=== PATIENT | male | born 2000 | race African-American/Black ===

== ENCOUNTER 2025-07-06 06:12 | Emergency (ER) | payer MEDICAID ==
[~2025-07-06] VITALS: Ht 182.9 cm; Wt 83.0 kg
[2025-07-06 06:16] VITALS: O2SAT 96
[2025-07-06] MEDS: MORPHINE SULFATE 4 MG/ML INJ (FOR IV/IM USE) IV ONE (06:39)
[2025-07-06] MEDS: SODIUM CHLORIDE 0.9% 1,000 ML IV ONE (06:40)
[2025-07-06] MEDS: ONDANSETRON HCL 4MG/2ML INJ IV ONE (06:42)
[2025-07-06 07:18] LABS: BASOPHILS % 0.8 % (0.0-2.0); EOSINOPHILS % 2.3 % (0.0-5.0); HEMATOCRIT. 47.3 % (42.0-52.0); HEMOGLOBIN. 15.3 g/dL (14.0-18.0); LYMPHOCYTES % 30.2 % (20.0-50.0); MEAN PLATELET VOLUME 9.0 fl (7.4-10.4); MONOCYTES % 7.1 % (2.0-8.0); NEUTROPHILS % 59.6 % (40.0-76.0); PLATELET 297 x1000/uL (130-400); RED BLOOD CELL COUNT 5.37 mill/uL (4.7-6.1); RED CELL DISTRIBUTION WIDTH 13.5 % (11.6-14.6)
[2025-07-06 07:30] LABS: CREATININE 1.4 mg/dL (0.6-1.3)
[2025-07-06 07:31] LABS: UREA NITROGEN BLOOD 13 mg/dL (9-23)
[2025-07-06 07:32] LABS: ASPARTATE AMINOTRANSFERASE 46 IU/L (<34)
[2025-07-06 07:33] LABS: BILIRUBIN DIRECT 0.2 mg/dL (<=3.0); BILIRUBIN TOTAL 0.8 mg/dL (0.1-1.0); PROTEIN TOTAL 8.5 g/dL (6.0-8.3)
[2025-07-06] MEDS: HALOPERIDOL LACTATE 5MG/ML VIAL IM ONE (07:33)
[2025-07-06 07:34] VITALS: BP 126/75; PULSE 70; RESP 18; TEMP 36.7; O2SAT 100
[2025-07-06] MEDS ORDERED: ONDA-239 PO (13:45)
== END 2025-07-06 08:15 | disposition left against medical advice (07) ==
LOC: ER 06:12
DX: R10.32 Left lower quadrant pain (principal); R11.2 Nausea with vomiting, unspecified; Z79.899 Other long term (current) drug therapy
CPT/HCPCS: 99285; 74176; 96374; 96361; 96375; 80076; 80048; 83690; 83735; 85025; 36415; 96372; J1630; J2405; J2270; J7030

== ENCOUNTER 2025-07-06 11:25 | Emergency (ER) | payer OTHER, MEDICAID ==
[~2025-07-06] VITALS: Ht 188 cm; Wt 88.0 kg
[2025-07-06 11:44] VITALS: O2SAT 100
[2025-07-06 11:49] LABS: BASOPHILS % 0.2 % (0.0-2.0); EOSINOPHILS % 0.0 % (0.0-5.0); HEMATOCRIT. 44.5 % (42.0-52.0); HEMOGLOBIN. 14.8 g/dL (14.0-18.0); LYMPHOCYTES % 8.9 % (20.0-50.0); MEAN PLATELET VOLUME 7.6 fl (7.4-10.4); MONOCYTES % 2.6 % (2.0-8.0); NEUTROPHILS % 88.3 % (40.0-76.0); PLATELET 247 x1000/uL (130-400); RED BLOOD CELL COUNT 5.04 mill/uL (4.7-6.1); RED CELL DISTRIBUTION WIDTH 13.2 % (11.6-14.6)
[2025-07-06 12:02] LABS: CREATININE 1.3 mg/dL (0.6-1.3); UREA NITROGEN BLOOD 13 mg/dL (9-23)
[2025-07-06] MEDS ORDERED: DIPHENHYDRAMINE 50MG CAPSULE PO ONE (12:45)
[2025-07-06] MEDS: DIPHENHYDRAMINE 25MG CAPSULE PO NR (13:00)
[2025-07-06] MEDS: KETOROLAC 15MG/ML VIAL IM ONE (13:00)
[2025-07-06] MEDS: MAGNESIUM/ALUMINUM HYDROXIDE/SIMETHICONE 30ML UDC PO ONE (13:00)
[2025-07-06] MEDS: ACETAMINOPHEN 500MG TABLET PO ONE (13:00)
[2025-07-06] MEDS: ONDANSETRON 4MG ODT PO ONE (13:00)
[2025-07-06] MEDS ORDERED: ONDA-239 PO (13:45)
[2025-07-06 13:53] VITALS: BP 120/70; PULSE 75; RESP 18; TEMP 37.1; O2SAT 100
== END 2025-07-06 13:54 | disposition home or self-care (01) ==
LOC: ER 11:25
DX: R11.16 Cannabis hyperemesis syndrome (principal); R10.9 Unspecified abdominal pain; F12.10 Cannabis abuse, uncomplicated
CPT/HCPCS: 99284; 80048; 85025; 36415; 96372; J1885; Q0163; Q0162

== ENCOUNTER 2025-07-08 06:36 | Emergency (ER) | payer MEDICAID ==
[~2025-07-08] VITALS: Ht 177.8 cm; Wt 78.0 kg
[~2025-07-08 06:36] MED LIST: ONDA-239 PO
[2025-07-08 06:44] VITALS: O2SAT 98
[2025-07-08] MEDS: MAGNESIUM/ALUMINUM HYDROXIDE/SIMETHICONE 30ML UDC PO ONE (07:54)
[2025-07-08] MEDS: VISCOUS LIDOCAINE 2% 15 ML UDC MM ONE (07:54)
[2025-07-08] MEDS: DICYCLOMINE HCL 10MG CAPSULE PO ONE (07:54)
[2025-07-08] MEDS: PANTOPRAZOLE SODIUM 40 MG/VIAL IV ONE (07:55)
[2025-07-08] MEDS: ONDANSETRON HCL 4MG/2ML INJ IV ONE (07:55)
[2025-07-08 08:36] LABS: BASOPHILS % 0.1 % (0.0-2.0); EOSINOPHILS % 0.0 % (0.0-5.0); HEMATOCRIT. 47.5 % (42.0-52.0); HEMOGLOBIN. 15.4 g/dL (14.0-18.0); LYMPHOCYTES % 17.6 % (20.0-50.0); MEAN PLATELET VOLUME 7.7 fl (7.4-10.4); MONOCYTES % 5.3 % (2.0-8.0); NEUTROPHILS % 77.0 % (40.0-76.0); PLATELET 258 x1000/uL (130-400); RED BLOOD CELL COUNT 5.38 mill/uL (4.7-6.1); RED CELL DISTRIBUTION WIDTH 13.5 % (11.6-14.6)
[2025-07-08 08:51] LABS: CREATININE 1.5 mg/dL (0.6-1.3); TROPONIN I HIGH SENSITIVITY 28 ng/L (3.0-53)
[2025-07-08 08:52] LABS: UREA NITROGEN BLOOD 12 mg/dL (9-23)
[2025-07-08 08:53] LABS: ASPARTATE AMINOTRANSFERASE 55 IU/L (<34); BILIRUBIN DIRECT 0.2 mg/dL (<=3.0)
[2025-07-08 08:54] LABS: BILIRUBIN TOTAL 0.9 mg/dL (0.1-1.0); PROTEIN TOTAL 9.0 g/dL (6.0-8.3)
[2025-07-08] MEDS: SODIUM CHLORIDE 0.9% 1,000 ML IV ONE (09:29)
[2025-07-08] MEDS ORDERED: ONDA4TAB50 MT (09:45)
[2025-07-08 10:14] VITALS: BP 132/85; PULSE 88; RESP 18; TEMP 36.7; O2SAT 99
[2025-07-08 10:15] LABS: TROPONIN I HIGH SENSITIVITY 29 ng/L (3.0-53)
== END 2025-07-08 10:15 | disposition home or self-care (01) ==
LOC: ER 06:36 → CANBEDREQ 09:44 → ER 10:15
DX: R10.12 Left upper quadrant pain (principal); F12.90 Cannabis use, unspecified, uncomplicated; Z79.899 Other long term (current) drug therapy
CPT/HCPCS: 80076; 80048; 83690; 83735; 85025; 84484; 36415; 96361; 96374; 96375; 99284; J2405; J2470; J7030; Z7610 ×2

== ENCOUNTER 2025-07-09 11:43 | Emergency (ER) | payer MEDICAID ==
[~2025-07-09] VITALS: Ht 188 cm; Wt 72.0 kg
[~2025-07-09 11:43] MED LIST changes: +ONDA4TAB50 MT
[2025-07-09 11:45] VITALS: PULSE 110; RESP 16; O2SAT 99
[2025-07-09 11:48] VITALS: BP 144/100; TEMP 37; O2SAT 100
[2025-07-09 12:15] LABS: BASOPHILS % 0.4 % (0.0-2.0); EOSINOPHILS % 0.4 % (0.0-5.0); HEMATOCRIT. 47.0 % (42.0-52.0); HEMOGLOBIN. 15.8 g/dL (14.0-18.0); LYMPHOCYTES % 35.0 % (20.0-50.0); MEAN PLATELET VOLUME 7.7 fl (7.4-10.4); MONOCYTES % 8.1 % (2.0-8.0); NEUTROPHILS % 56.1 % (40.0-76.0); PLATELET 277 x1000/uL (130-400); RED BLOOD CELL COUNT 5.37 mill/uL (4.7-6.1); RED CELL DISTRIBUTION WIDTH 13.2 % (11.6-14.6)
[2025-07-09 12:28] LABS: CREATININE 1.6 mg/dL (0.6-1.3); UREA NITROGEN BLOOD 14 mg/dL (9-23)
== END 2025-07-09 14:10 | disposition left against medical advice (07) ==
LOC: ER 11:43
DX: R10.30 Lower abdominal pain, unspecified (principal)
CPT/HCPCS: 36415; 80048; 85025; 99281